=== PATIENT | female | born 2000 ===

== ENCOUNTER 2025-03-11 07:43 | Outpatient (REF) | payer OTHER, SELFPAY ==
--- OUTSIDE RECORDS SUMMARY | 2025-03-11 07:49 | XMS_ITS | Encounter Summary ---
Author Organization [facility] Address [address] [place] [address] Phone Care Team Providers Care Principal Strategist Name Role Phone Cosme Alvarado MD Primary Care Provider Unav ailable Encounter Details Date Type Department Care Team (Late st Contact Info) Description 06/28/2017 Conversion Encounter DEVIN BOSWELL MD [address] [id number] Cosme Alvarado MD Social History Tobacco Use Types Packs/Day Years Used Date Smoking Tobacco: Never Assessed Comments Unknown Sex and Gender Information Value Date Recorded Sex Assigned at Not on file Legal Sex Female 9:55 PM EST Gender Identity Not on file Sexual Orientation Not on file documented as of this encounter Plan of Treatment Not on file documented as of this encounter Visit Diagnoses Not on filedocumented in this encounter Care Teams Principal Strategist Relationship Specialty Start Date End Date Cosme Alvarado MD PCP - General 04/03/17 documented as of this encounter
--- OUTSIDE RECORDS SUMMARY | 2025-03-11 07:49 | XMS_ITS | Clinical Summary ---
Author Organization [facility] [email or web address] Address [address] [place] [address] Care Team Providers Care Purler Name Role Phone No, Pcp TAX ANALYST Primary Care Provider Unavailabl e Social History Tobacco Use Types Packs/Day Years Used Date Smoking Tobacco: Never Assessed Comments Unknown Sex and Gender Information Value Date Recorded Sex Assigned at Not on file Legal Sex Female 7:12 PM EST Gender Identity Not on file Sexual Orientation Not on file Plan of Treatment Health Maintenance Due Date Last Done Comments Depression: Screening Annually using PHQ-2/9 in Adults 18 yrs or above (or HM Modifier)([facility]) 2000 Hepatitis C Virus Infection in Adolescents and Adults: Screening (or Modifier) ([facility]) 2018 SDOH Screening Reminder: Annually for all adults ([facility]) 2018 Tobacco Smoking Cessation: i n Adults excluding Women: Behavioral and Pharmacotherapy Interventions ([facility]) 2018 Lipid Screening: Once for Women aged 20 to 45 yrs ([facility]) 2020 DTaP/Tdap/Td Vaccines ([facility]) (7 - Td or Tdap) 03/02/2021 03/02/2011, 12/23/2004, 04/23/2002, Additional history exists Cervical Cancer Screenin-65 yrs of age (or Modifier) 2021 Cervical Cancer Screening: Pap every 3 yrs pts age 21-65 2021 Cervical Cancer: Pap Screening with Modifier timing ([facility]) 2021 Cervical Cancer: hrHPV alone or with cotesting Pap for Pts 30-65yrs screening every 5yrs ([facility]) 2021 COVID-19 Vaccine Screening: Initial Series and Booster Status ([facility]) (2023- season) 2024 Flu Vaccination: Yearly for ages 18mos through 64 years (or Modifier)([facility]) 06/20/2025 Zoster/Shingles Vaccine Series Screening: Adults aged 18+ yrs (or HM Modifiers)([facility]) (1 of 2) 2050 03/06/2012, 10/30/2001 Pneumococcal Vaccination Screening: Pts 0-19 & 19-49 yrs of age ([facility]) Aged Out No longer eligible based on patient's age to complete this topic Medical Devices Not on file Insurance [facility] MEDICARE Care Teams Purler Relationship Specialty Start Date End Date No, Pcp, TAX ANALYST N/A Do not use PCP - General Family Medicine 01/08/21
--- OUTSIDE RECORDS SUMMARY | 2025-03-11 07:49 | XMS_ITS | Clinical Summary ---
Author Organization [facility] Address [address] [place] [phone] Phone Care Team Providers Care Clinical Application Manager Name Role Phone Cosme Alvarado MD Primary Care Provider Unav ailable Allergies No known active allergies Medications escitalopram 10 MG tablet 07/07/2018 Active methylphenidate CD 10 MG CR capsule 07/19/2018 Ac tive Immunizations Immunization Administration Dates Next Due DTaP 12/23/2004, 2,06/20/2001,04/19,02/15/2001 HPV Vaccine 9 Valent 06/07/2016,06/05/2015 HPV, Quadrivalent 05/08/2014 Hep A, ped/adol 10/28/2015 Hep A, pediatric, unspecifie d formulation 06/21/2011 Hep B 08/01/2001,04/19/2001,2000 HiB 01/29/2002, 1,02/15/2001,12/18 IPV 12/23/2004, 2,02/15/2001,12/18 Influenza Split 11/04/2013 MMR 12/23/2004,01/29/2002 Meningococcal Conj (Menactra) MCV4P 04/27/2017,0 03/06/2012 Pneumococcal Conjugate 13-Valent 001,04/19/2001,02/15/2001,12/18 Tdap 03/02/2011 Typhoid, ViCPs 10/28/2015 Varicella 03/06/2012,10/30/2001 Family History Relation Name Status Comments Father Alive Mother Alive Other 1 Alive Other 2 Alive Social History Tobacco Use Types Packs/Day Years Used Date Smoking Tobacco: Never Assessed Hunger/Food Answer Date Recorded In the last 12 months, did y ou or your family ever eat less than you felt you should because there wasn't enough money for food? No 05/07/2019 Stable Housing Answer Date Recorded Are you worried that in the next 2 months you may not have stable housing? No 05/07/2019 Transportation Concerns Answer Date Rec orded In the last 12 months, have you or your family ever had to go without healthcare because you didn't have a way to get there? No 05/07/2019 Hazards in Home Answer Date Recorded Think about the place you li ve. Do you have problems with any of the following? Pests (mice or roaches), mold, no/not working smoke detectors, water leaks, no window guards. No 2018 Financing Utilities Answer Date Recorde d In the last 12 months, has t he electric, gas, oil, or water company threatened to shut off your services in your home? No 05/07/2019 Safety at Home Answer Date Recorded Are you or your family worried about feeling saf e in your home? No 05/07/2019 Outside Support Answer Date Recorded Do you feel that you need mo re support from other people or programs to help you care for yourself or your family? No 05/07/2019 Understanding Health Concerns Answer Da te Recorded Do you need help understandi ng your or your child's healthcare needs (diagnosis, medications, plan, etc.)? No 05/07/2019 Financing Health Concerns Answer Date R ecorded In the last 12 months, was t here a time when your child needed to see a doctor or get medications or supplies but could not because of cost? No 05/07/2019 Missing School or Work Answer Date Sumit rded Did you or your child miss s chool or work because of a health problem that could have been avoided? No 05/07/2019 Comments Unknown Sex and Gender Information Value Date Recorded Sex Assigned at Not on file Legal Sex Female 9:55 PM EST Gender Identity Not on file Sexual Orientation Not on file Last Filed Vital Signs Vital Sign Reading Time Taken Comments Blood Pressure 108/60 05/07/2019 10:31 AM EDT Pulse 82 05/07/2019 10:31 AM EDT Temperature - - Respiratory Rate - - Oxygen Saturation 97% 05/07/2019 10:31 AM EDT Inhaled Oxygen Concentration - - Weight 61.2 kg (135 lb) 05/07/2019 10:31 AM EDT Height 171.5 cm (5' 7.5 ) 05/07/2019 10:31 AM ED T Body Mass Index 20.83 05/07/2019 10:31 AM EDT Plan of Treatment Health Maintenance Due Date Last Done Comments DTaP,Tdap,and Td Vaccines (7 - Td or Tdap) 03/02/2021 03/02/2011, 12/23/2004, 04/23/2002, Additional history exists Influenza Vaccines (#1) 2024 11/04/2013 COVID-19 Vaccine ( season) 2024 12/01/2021, 03/12/2021, 02/19/2021 Hepatitis B Vaccines Completed 08/01/2001, 04/19/2001, 2000 Pneumococcal Vaccine Completed 10/30/2001, 04/19/2001, 02/15/2001, Additional history exists HIB Vaccines Completed 01/29/2002, 03/22, 02/15/2001, Additional history exists IPV Vaccines Completed 12/23/2004, 12/2001, 02/15/2001, Additional history exists MMR Vaccines Completed 12/23/2004, 01/29/2002 Varicella Vaccines Completed 03/06/2012, 10/30/2001 Hepatitis A Vaccines Completed 10/28/2015, 06/21/20 11 HPV Vaccines Completed 06/07/2016, 05/20, 05/08/2014 Meningococcal Vaccine Completed 04/27/2017, 012 Men B Vaccine Aged Out No longer elipayal antonysy based on patient's age to complete this topic Insurance Care Teams Clinical Application Manager Relationship Specialty Start Date End Date Cosme Alvarado MD PCP - General 04/03/17
--- OUTSIDE RECORDS SUMMARY | 2025-03-11 07:49 | XMS_ITS | Clinical Summary ---
Author Organization [facility] Address [address] [place] [address] Care Team Providers Care Equity Sales Assistant Name Role Phone Unavailable Primary Care Provider Unavailabl e Social History Tobacco Use Types Packs/Day Years Used Date Smoking Tobacco: Never Assessed Comments Unknown Sex and Gender Information Value Date Recorded Sex Assigned at Not on file Legal Sex Female 11:15 PM EST Gender Identity Not on file Sexual Orientation Not on file Plan of Treatment Not on file
== END 2025-03-11 07:44 | disposition home or self-care (01) ==
LOC: HO.UMASIMG 07:43
PROVIDERS: Visit Provider Nurse Practitioner Women's Health
DX: Z13.89 Encounter for screening for other disorder (principal)